=== PATIENT | male | born 1995 | race American Indian/Alaskan Native ===

== ENCOUNTER 2017-04-25 21:46 | Emergency (ER) | payer SELFPAY ==
[2017-04-25 22:05] VITALS: BP 131/71
--- NOTE | 2017-04-26 00:10 | Emergency Department Report ---
ED Male HPI - General Chief complaint: Urogenital-Male Stated complaint: MUSCLE PAIN Time Seen by Provider: 04/26/17 00:07 Source: patient, family Mode of arrival: Ambulatory Limitations: No Limitations - History of Present Illness Initial comments: Patient he reports penile swelling and soreness 1 day. Denies any penile drainage or urinary burning frequency or urgency. He reports pain 7 out of 10 to lower back and to left testicle. Denies any trauma. Denies any concerns for STD. Denies any fever or chills. Denies any abdominal pain. No over-the- counter medication taken. MD Complaint: testicle pain, testicle swelling Onset/Timin -: days(s) Location: left testicle (and lower back) Radiation: none Severity: severe Severity scale (0 -10): 7 Quality: aching, other (sore to left testicle) Consistency: intermittent Improves with: none Worsens with: movement swelling (to testicle), other (lower back pain). denies: discharge, mass, rash , urinary retention, blood in urine, dysuria, fever, nausea/vomiting, incontinence - Related Data Sexually active: Yes Previous Rx's Medication Instructions Recorded Last Taken Type Ciprofloxacin HCl [Ciprofloxacin 500 mg PO Q12HR 10 Days #20 tab 04/26/17 Unknown Rx TAB] Allergies Allergy/AdvReac Type Severity Reaction Status Date / Time No Known Allergies Allergy Unverified 04/26/17 00:10 ED Review of Systems ROS: Stated complaint: MUSCLE PAIN Other details as noted in HPI Comment: All other systems reviewed and negative Constitutional: no symptoms reported ENT: denies: throat pain Respiratory: no symptoms reported Cardiovascular: denies: chest pain, palpitations, edema, syncope Genitourinary: testicular pain. denies: urgency, dysuria, frequency, hematuria , discharge, testicular mass Musculoskeletal: back pain. denies: joint swelling, arthralgia, myalgia Skin: denies: rash Neurological: denies: headache, numbness, paresthesias ED Past Medical Hx - Past Medical History Previous Medical History?: No - Surgical History Past Surgical History?: No - Family History Family history: hypertension - Social History Smoking Status: Current Every Day Smoker Substance Use Type: Alcohol, Marijuana - Medications Home Medications: Home Medications Medication Instructions Recorded Confirmed Last Taken Type Ciprofloxacin HCl [Ciprofloxacin 500 mg PO Q12HR 10 Days #20 tab 04/26/17 Unknown Rx TAB] ED Physical Exam - General Limitations: No Limitations General appearance: alert, in no apparent distress - Head Head exam: Present: atraumatic, normocephalic, normal inspection - Eye Eye exam: Present: normal appearance, PERRL, EOMI Pupils: Present: normal accommodation - ENT ENT exam: Present: normal exam, normal orophraynx, mucous membranes moist - Neck Neck exam: Present: normal inspection, full ROM, other (no C-spine tenderness). Absent: tenderness, meningismus, lymphadenopathy, thyromegaly - Respiratory Respiratory exam: Present: normal lung sounds bilaterally. Absent: respiratory distress, chest wall tenderness - Cardiovascular Cardiovascular Exam: Present: regular rate, normal rhythm, normal heart sounds. Absent: systolic murmur, diastolic murmur - GI/Abdominal GI/Abdominal exam: Present: soft, normal bowel sounds. Absent: distended, tenderness, guarding, rebound, rigid, organomegaly, mass, bruit, pulsatile mass , hernia - exam: Present: testicular tenderness, scrotal swelling, circumcision, other ( scrotal swelling and tender to palpate). Absent: urethral discharge, vertical testicular lie External exam: Present: swelling. Absent: erythema, lesions, lacerations, ecchymosis, bleeding - Expanded Exam Expanded Male exam: Absent: phimosis, paraphimosis, penile swelling, lesions, induration, erythema, perineal induration, balanitis, priapism exam: Testicular Tenderness: Left, Testicular Swelling: Left, Epididymal Tenderness: Left, Cremasteric Reflex Present: Left, Right - Extremities Exam Extremities exam: Present: normal inspection, full ROM, normal capillary refill , other (no clubbing, cyanosis or edema. +2 pulses all extremities). Absent: tenderness, pedal edema, joint swelling, calf tenderness - Back Exam Back exam: Present: normal inspection, full ROM, other (ablated without any difficulties). Absent: tenderness, CVA tenderness (R), CVA tenderness (L), muscle spasm, paraspinal tenderness, vertebral tenderness, rash noted - Neurological Exam Neurological exam: Present: alert, oriented X3, normal gait, reflexes normal. Absent: motor sensory deficit - Psychiatric Psychiatric exam: Present: normal affect, normal mood - Skin Skin exam: Present: warm, dry, intact, normal color. Absent: rash ED Course Vital Signs 04/25/17 04/25/17 22:01 22:38 Temperature 98.7 F 98.7 F Pulse Rate 71 69 Respiratory 18 16 Rate Blood Pressure 131/71 131/71 O2 Sat by Pulse 97 97 Oximetry - Reevaluation(s) Reevaluation #1: 04/26/17 01:52 Patient with moderate amount of leukocyte Estrace and 70+ white blood cells and urine. Ultrasound of testicles revealed left epididymitis. I discussed urine and ultrasound results patient and I also discuss treatment for STDs. Patient wants to be treated for STD and will follow up with [facility] for testing. Patient given Rocephin 1 g IM to cover UTI and gonorrhea and azithromycin 1 g by mouth to cover chlamydia. ED Medical Decision Making - Lab Data Lab Results 04/26/17 Range/Units Unknown Urine Color Yellow (Yellow) Urine Turbidity Clear (Clear) Urine pH 6.0 (5.0-7.0) Ur Specific [place] 1.020 (1.003-1.030) Urine Protein <15 mg/dl (Negative) mg/dL Urine Glucose (UA) Neg (Negative) mg/dL Urine Ketones Neg (Negative) mg/dL Urine Blood Neg (Negative) Urine Nitrite Neg (Negative) Urine Bilirubin Neg (Negative) Urine Urobilinogen 2.0 (<2.0) mg/dL Ur Leukocyte Esterase Mod (Negative) Urine WBC (Auto) 70.0 H (0.0-6.0) /HPF Urine RBC (Auto) 5.0 (0.0-6.0) /HPF Urine Mucus Few /HPF Urine culture pending - Radiology Data Radiology results: report reviewed Ultrasound of testicles reveal findings of epididymitis involving the left epididymal tail. Normal sonographic appearance of bilateral testes with no evidence of torsion or orchitis - Medical Decision Making ED course: Patient here complaining of testicular pain and initially had no concern for STD. Urinalysis reveal patient with white blood cells and moderate leukocyte Estrace. Ultrasound of the testicles revealed patient with epididymitis left epididymal. Discussed empiric treatment for STD with patient due to elevated white count a urine and also epididymitis. Patient does have unprotected sex and agrees to be treated empirically for gonorrhea and chlamydia. Urine culture sent and pending. Patient given Rocephin 1 g IM to cover her UTI and gonorrhea and azithromycin 1 g by mouth to cover chlamydia. He had no adverse reaction. I discussed the patient he needs to go to health department for full STD check. Discharge diagnosis and treatment plan discussed patient and he voiced understanding. STD precautions discussed. Patient discharged home in stable condition with prescription for ciprofloxacin which will cover epididymitis and UTI. He should follow up at [facility] as he does not have a primary care physician Critical care attestation.: If time is entered above; I have spent that time in minutes in the direct care of this critically ill patient, excluding procedure time. ED Disposition Clinical Impression: Concern about STD in male without diagnosis, Testicular pain, left, Left epididymitis UTI (urinary tract infection) Qualifiers: Urinary tract infection type: acute cystitis Hematuria presence: without hematuria Qualified Code(s): N30.00 - Acute cystitis without hematuria Disposition: TO HOME OR SELFCARE Is pt being admited?: No Does the pt Need Aspirin: No Condition: Stable Instructions: Epididymitis (ED), Urinary Tract Infection in Men (ED), Testicle Pain (ED), Testicular Self-examination (ED), Safe Sex (ED), Sexually Transmitted Diseases (ED) Additional Instructions: Please practice safe sex You're treated for gonorrhea and Chlamydia in emergency room. Please start taking ciprofloxacin antibiotic. Increase her fluid intake to 2-3 L of fluid per day. Follow up at [facility] for primary care Please do not have any sexual encounter 2 week Follow-up at [facility] for complete STD testing Prescriptions: Ciprofloxacin HCl [Ciprofloxacin TAB] 500 mg PO Q12HR 10 Days #20 tab Referrals: [facility] [Outside] - 7-10 days [facility] [Outside] - 2-3 Days Forms: STI Treatment and Prevention, Work/School Release Form(ED)
[2017-04-26 00:44] LABS: Bilirubin,Urine NEG (Negative); Blood,Urine NEG (Negative); Color,Urine Yellow (Yellow); Mucus,Urine FEW /HPF; Nitrite,Urine NEG (Negative); Protein,Urine <15 mg/dL mg/dL (Negative)
--- NOTE | 2017-04-26 01:00 | Ultrasound Report ---
FINAL REPORT EXAM: US TESTICULAR DOPPLER COMP HISTORY: Left-sided testicular pain and swelling. TECHNIQUE: Directed real-time grayscale and color Doppler ultrasound examination of the scrotum was performed. No prior studies are available for comparison. FINDINGS: The right testis measures 3.2 x 2.0 x 3.7 cm, and is homogeneous in echotexture, without discrete lesion. The right epididymal head is normal in appearance. The left testis measures 3.0 x 2.5 x 4.1 cm, and is homogeneous in echotexture, without discrete lesion. The left epididymal head is normal in appearance. However, there is relative enlargement of the left epididymal tail, associated moderately increased color Doppler flow. These findings in keeping with epididymitis, and clinical correlation is recommended. Appropriate color vascularity is seen within both testes, without evidence of torsion or orchitis. There is no significant hydrocele. IMPRESSION: 1. Findings of epididymitis involving the left epididymal tail. 2. Normal sonographic appearance of the bilateral testes, with no evidence of torsion or orchitis.
[2017-04-26] MEDS ORDERED: ROCEPHIN IM STA (01:46)
[2017-04-26] MEDS ORDERED: XYLOCAINE 1% MPF 5 mL INFILTRATI ONE (01:46)
[2017-04-26] MEDS ORDERED: ZITHROMAX PO ONE (01:46)
== END 2017-04-26 02:50 | disposition home or self-care (01) ==
LOC: ED 21:46
DX: N45.1 Epididymitis (principal); N30.00 Acute cystitis without hematuria; F17.200 Nicotine dependence, unspecified, uncomplicated; F12.10 Cannabis abuse, uncomplicated
CPT/HCPCS: 81001; 87086; 93975; 96372; 99284; J0696